=== PATIENT | male | born 1965 | race Caucasian/White ===

== ENCOUNTER 2017-09-04 19:50 | Emergency (ER) | payer BC ==
[2017-09-04 20:22] VITALS: TEMP 98.1
--- NOTE | 2017-09-04 20:48 | EDPHY ---
H & P Stated Complaint: abd pain umbilical hernia resolved diarrhea Time Seen by Provider: 09/04/17 20:47 - Personal History Current Tetanus/Diphtheria Vaccine: Yes Current Tetanus Diphtheria and Acellular Pertussis (TDAP): Yes - Medical/Surgical History Hx Asthma: No Hx Chronic Respiratory Disease: No Hx Diabetes: No Hx Cardiac Disease: No Hx Renal Disease: No Hx Cirrhosis: No Hx Alcoholism: No Hx HIV/AIDS: No Hx Splenectomy or Spleen Trauma: No Other PMH: umb hernia. inguinal hernia bilat. r acl / mcl. ibs. carpal tunnel - Social History Smoking Status: Never smoked Constitutional: Initial Vital Signs Temperature (C) 36.7 C 09/04/17 20:19 Heart Rate 79 09/04/17 20:19 Respiratory Rate 18 09/04/17 20:19 Blood Pressure 129/74 H 09/04/17 20:19 O2 Sat (%) 97 09/04/17 20:19 O2 Delivery Mode Room Air Allergies/Adverse Reactions: tetracycline Allergy (Verified 09/04/17 20:19) Home Medications: Medication Instructions Recorded Ciprofloxacin [Cipro] 500 mg PO BID #6 tab 09/04/17 PRILOSEC 09/04/17 Medical Decision Making - Diagnostics Imaging Results: Imaging Impressions Abdomen CT 09/04/17 20:51 Impression: 1. Umbilical hernia containing mesenteric fat, without small bowel. The fat demonstrates increased density and stranding potentially related to inflammation or ischemia. 2. Diffuse fluid-filled distention of distal small bowel loops suggesting gastroenteritis, without transition point. Results discussed with Dr. Morris at 10:20 PM. ED Course/Re-evaluation: CHIEF COMPLAINT: Abdominal pain, vomiting, diarrhea HISTORY OF PRESENT ILLNESS: The patient is a 52 y/o male with a history of umbilical hernia, IBS, and diverticulitis on the right side complaining of vomiting, diarrhea, and abdominal pain onset yesterday. His umbilical hernia became incarcerated about two weeks ago and has not been able to be reduced. Yesterday, the patient was on a plane from [place] when he began experiencing intense pressure in his umbilical hernia. He was then able to reduce his umbilical hernia, after which he began experiencing chills, abdominal pain, and feverish. He used the restroom after deplaning and temporarily felt better. He soon began experiencing vomiting, diarrhea, feverish , and chills. His diarrhea is primarily liquid. He has mostly been sleeping and has been incontinent three times in his sleep. He reports his pain radiates into his back. He denies any other associated symptoms. REVIEW OF SYSTEMS: A 10 point review of systems was performed and is negative with the exception of the elements mentioned in the history of present illness. PHYSICAL EXAM: HR, BP, O2 Sat, RR. Temp noted General Appearance: Alert, well hydrated, appropriate, and non-toxic appearing. Head: Atraumatic without scalp tenderness or obvious injury Eyes: Pupils equal, round, reactive to light and accommodation, EOMI, no trauma , no injection. Ears: Clear bilaterally, no perforation, normal landmarks Nose: Atraumatic, no rhinorrhea, clear. Throat: There is no erythema or exudates, no lesions, normal tonsils, mucus membranes moist. Neck: Supple, nontender, no lymphadenopathy. Respiratory: No retractions, no distress, no wheezes, and no accessory muscle use. Lungs are clear to auscultation bilaterally. Cardiovascular: Regular rate and rhythm, no murmurs, rubs, or gallops. Good capillary refill all extremities. Gastrointestinal: Tenderness in the right lower quadrant. Umbilical hernia able to be reduced. Abdomen is soft, non-distended, no masses, no rebound, no guarding, no peritoneal signs. Musculoskeletal: Normal active ROM of all extremities, atraumatic. Neurological: Alert, appropriate, and interactive. The patient has normal DTRs and non-focal cranial nerves, motor, sensory, and cerebellar exam. Skin: No rashes, good turgor, no nodules on palpation. Past medical history: Diverticulitis, umbilical hernia, IBS Past surgical history: Bilateral inguinal hernia repair Family history: Non-contributory Social history: From [place], football fan, DIAGNOSTICS/PROCEDURES/CRITICAL CARE TIME: Study: CT of the abdomen Indication: Diarrhea, Incarcerated umbilical hernia Results: CT scan of the body parts was obtained. The results of the study are omentum fat hernia in the umbilicus, gastroenteritis. The study was read by the radiologist, Dr. Mullen. I viewed the images myself on the PACS system. DIFFERENTIAL DIAGNOSIS: The differential diagnosis for the patient's abdominal pain included but was not limited to appendicitis, diverticulitis, infection, cholecystitis, hernias, testicular torsion, gastritis, and urinary tract infection. MEDICAL DECISION MAKING: The patient is a 52 y/o male with a history of diverticulitis, IBS, and umbilical hernia complaining of vomiting, diarrhea, and abdominal pain onset yesterday. He was on a plane when he was able to reduce his hernia. Immediately he began experiencing abdominal pain and soon after diarrhea and vomiting. He has associated fever, chills, and tenderness in the lower right quadrant on exam. Plan for imaging and labs. 2213: Labs normal 2218: Imaging reports his hernia contains omental fat in the umbilicus and gastroenteritis. I reassessed this patient and informed him of the results of his workup. Patient will be discharged with a prescription for Cipro and Imodium. Instructions for medications given. Follow-up instructions and return precautions given. Patient is comfortable with this course of action. - Data Points Laboratory Results: Laboratory Results 09/04/17 20:55 09/04/17 20:55 09/04/17 09/04/17 20:55 20:55 WBC 5.14 10^3/uL 10^3/uL (3.80-9.50) RBC 4.89 10^6/uL 10^6/uL (4.40-6.38) Hgb 15.7 g/dL g/dL (13.7-17.5) Hct 46.1 % % (40.0-51.0) MCV 94.3 fL fL (81.5-99.8) MCH 32.1 pg pg (27.9-34.1) MCHC 34.1 g/dL g/dL (32.4-36.7) RDW 12.3 % % (11.5-15.2) Plt Count 230 10^3/uL 10^3/uL (150-400) MPV 7.9 fL L fL (8.7-11.7) Neut % (Auto) 53.5 % % (39.3-74.2) Lymph % (Auto) 34.6 % % (15.0-45.0) Mineral % (Auto) 9.5 % % (4.5-13.0) Eos % (Auto) 1.4 % % (0.6-7.6) Baso % (Auto) 0.6 % % (0.3-1.7) Nucleat RBC Rel Count 0.0 % % (0.0-0.2) Absolute Neuts (auto) 2.75 10^3/uL 10^3/uL (1.70-6.50) Absolute Lymphs (auto) 1.78 10^3/uL 10^3/uL (1.00-3.00) Absolute Monos (auto) 0.49 10^3/uL 10^3/uL (0.30-0.80) Absolute Eos (auto) 0.07 10^3/uL 10^3/uL (0.03-0.40) Absolute Basos (auto) 0.03 10^3/uL 10^3/uL (0.02-0.10) Absolute Nucleated RBC 0.00 10^3/uL 10^3/uL (0-0.01) Immature Gran % 0.4 % % (0.0-1.1) Immature Gran # 0.02 10^3/uL 10^3/uL (0.00-0.10) Sodium 141 mEq/L mEq/L (134-144) Potassium 3.5 mEq/L mEq/L (3.5-5.2) Chloride 100 mEq/L mEq/L (97-110) Carbon Dioxide 25 mEq/l mEq/l (22-31) Anion Gap 16 mEq/L mEq/L (8-16) BUN 12 mg/dL mg/dL (7-23) Creatinine 1.1 mg/dL mg/dL (0.7-1.3) Estimated GFR > 60 Glucose 93 mg/dL mg/dL (70-100) Calcium 9.1 mg/dL mg/dL (8.5-10.4) Total Bilirubin 0.3 mg/dL mg/dL (0.1-1.4) Conjugated Bilirubin 0.1 mg/dL mg/dL (0.0-0.5) Unconjugated Bilirubin 0.2 mg/dL mg/dL (0.0-1.1) AST 24 IU/L IU/L (17-59) ALT 31 IU/L IU/L (21-72) Alkaline Phosphatase 66 IU/L IU/L (38-126) Total Protein 7.9 g/dL g/dL (6.3-8.2) Albumin 4.0 g/dL g/dL (3.5-5.0) Lipase 98 IU/L IU/L (23-300) Medications Given: Discontinued Medications Sodium Chloride (Ns) 1,000 mls @ 0 mls/hr IV EDNOW ONE; Wide Open PRN Reason: Protocol Stop: 09/04/17 20:52 Last Admin: 09/04/17 21:27 Dose: 1,000 mls Departure - Departure Disposition: Home, Routine, Self-Care Clinical Impression: Diarrhea Qualifiers: Diarrhea type: unspecified type Qualified Code(s): R19.7 - Diarrhea, unspecified Condition: Good Instructions: Gastroenteritis (ED), Acute Nausea and Vomiting (ED), Acute Diarrhea (ED) Additional Instructions: 1. Take the full course of Cipro. 2. Take the immoudium as directed before your flight. 3. Follow-up with your primary care provider for unimproved symptoms in 2-3 days. 4. Return to the ED for worsening of condition. Referrals: NONE *PRIMARY CARE P,. [Primary Care Provider] - As per Instructions Bárbara North DO [Doctor of Osteopathy] - As per Instructions Prescriptions: Ciprofloxacin [Cipro] 500 mg PO BID #6 tab Report Scribed for: Negro Morris Report Scribed by: Sangeeta Prakash Date of Report: 09/04/17 Time of Report: 22:08
[2017-09-04] MEDS ORDERED: NS 1,000 ML IV ONE (20:51)
[2017-09-04] MEDS ORDERED: IOPAMIDOL (ISOVUE-300) 100 ML BTL ONE (20:55)
[2017-09-04 21:05] LABS: % IMMATURE GRANULYOCYTES 0.4 % (0.0-1.1); ABSOLUTE IMMATURE GRANULOCYTES 0.02 10^3/uL (0.00-0.10); ADD DIFF? NO; ADD MORPH? NO; ADD SCAN? NO; ATYPICAL LYMPHOCYTE FLAG 0 (0-99); FRAGMENT RBC FLAG 0 (0-99); HEMATOCRIT 46.1 % (40.0-51.0); HEMOGLOBIN 15.7 g/dL (13.7-17.5); LEFT SHIFT FLG 0 (0-99); LIPEMIA HEMOLYSIS FLAG 90 (0-99); MEAN CELL HEMOGLOBIN 32.1 pg (27.9-34.1); MEAN CELL HEMOGLOBIN CONCENTR. 34.1 g/dL (32.4-36.7); MEAN CELL VOLUME 94.3 fL (81.5-99.8); MEAN PLATELET VOLUME 7.9 fL (8.7-11.7); PLATELET CLUMPS FLAG 20 (0-99); PLATELET COUNT 230 10^3/uL (150-400); RED BLOOD CELL COUNT 4.89 10^6/uL (4.40-6.38); RED CELL DISTRIBUTION WIDTH 12.3 % (11.5-15.2)
[2017-09-04 21:16] LABS: ALANINE AMINOTRANSFERASE 31 IU/L (21-72); ALKALINE PHOSPHATASE 66 IU/L (38-126); ANION GAP 16 mEq/L (8-16); ASPARTATE AMINOTRANSFERASE 24 IU/L (17-59); BILIRUBIN,TOTAL 0.3 mg/dL (0.1-1.4); BILIRUBIN-CONJUGATED 0.1 mg/dL (0.0-0.5); BILIRUBIN-UNCONJUGATED 0.2 mg/dL (0.0-1.1); CALCIUM 9.1 mg/dL (8.5-10.4); CARBON DIOXIDE 25 mEq/l (22-31); CHLORIDE 100 mEq/L (97-110); CREATININE 1.1 mg/dL (0.7-1.3); GLOMERULAR FILTRATION RATE > 60; GLUCOSE 93 mg/dL (70-100); POTASSIUM 3.5 mEq/L (3.5-5.2); SODIUM 141 mEq/L (134-144); TOTAL PROTEIN 7.9 g/dL (6.3-8.2)
[2017-09-04] MEDS ORDERED: CIPROFLOXACIN 500 MG TAB PO ONE (22:22)
[2017-09-04 22:36] VITALS: BP 122/78; PULSE 80; RESP 16; O2SAT 98
== END 2017-09-04 22:36 | disposition home or self-care (01) ==
DX: R19.7 Diarrhea, unspecified (principal); E86.9 Volume depletion, unspecified
CPT/HCPCS: Q9967